=== PATIENT | female | born 1985 ===

== ENCOUNTER 2024-03-25 12:15 | Outpatient (CLI) | payer OTHER, SELFPAY ==
--- NOTE | 2024-03-25 | ECG_ITS ---
SEE SCANNED COPY FOR CONFIRMED REPORT. MTDD
== END 2024-03-25 12:16 | disposition home or self-care (01) ==
PROVIDERS: PCP Physician Assistant; Visit Provider Physician Assistant
DX: Z01.818 Encounter for other preprocedural examination (principal)
CPT/HCPCS: 93005

== ENCOUNTER 2025-10-28 11:19 | Emergency (ER) | payer SELFPAY ==
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
[2025-10-28 11:33] VITALS: BP 126/77; PULSE 79; RESP 20; TEMP 36.7; O2SAT 100
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
[2025-10-28 12:19] VITALS: BP 143/89; PULSE 93; RESP 18; TEMP 36.3; O2SAT 100
[2025-10-28] MEDS: ACETAMINOPHEN 500 MG TABLET 1000 MG PO (12:21)
== END 2025-10-28 12:47 | disposition home or self-care (01) ==
PROVIDERS: Emergency Provider Nurse Practitioner Family; PCP Physician Assistant
DX: S16.1XXA Strain of muscle, fascia and tendon at neck level, initial encounter (principal); S39.012A Strain of muscle, fascia and tendon of lower back, initial encounter; S63.502A Unspecified sprain of left wrist, initial encounter; V89.2XXA Person injured in unspecified motor-vehicle accident, traffic, initial encounter
CPT/HCPCS: 72050; 72110; 73110; 99214; A9270; G0463